=== PATIENT | female | born 1980 | race Caucasian/White ===

== ENCOUNTER → 2021-01-30 | Outpatient (CLI) | payer BC, OTHER ==
--- NOTE | 2021-01-30 10:29 | XR ---
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 Straightening of the norm al cervical lordosis is likely due to positioning or muscle spasm. The pre-vertebral soft tissue appe ars within normal limits. The C1-C2 articulation is within normal limits on the open mouth view. Th e dens is intact. The oblique images are within normal limits. IMPRESSION: 1. Straightening of the normal cervical lordosis is likely due to positioning or muscle spasm. No acu te fracture is seen.
--- NOTE | 2021-01-30 10:30 | XR ---
EXAMINATION TYPE: XR chest 2V DATE OF EXAM: 01/30/2021 COMPARISON: NONE HISTORY: Post Covid, shortness of breath TECHNIQUE: Frontal and lateral views of the chest are obtained. FINDINGS: Heart size is within normal limits. Trachea is midline. No focal consolidation, pneumothor ax or left pleural effusion. Minimal blunting of the right costophrenic angle may represent tiny righ t pleural effusion or scarring. Osseous structures are unremarkable. IMPRESSION: 1. Minimal blunting of the right costophrenic angle may represent tiny pleural effusion or scarring. No focal consolidation.
--- NOTE | 2021-01-30 13:28 | XR ---
EXAMINATION TYPE: XR lumbosacral spine min 4V DATE OF EXAM: 01/30/2021 CLINICAL HISTORY: Post- Covid lumbar pain TECHNIQUE: Frontal, lateral, and oblique images of the lumbar spine are obtained. COMPARISON: None FINDINGS: 4 lumbar type vertebral bodies with partial sacralization of L5. Facets are in alignment on the oblique views. Sacroiliac joints are intact. There is maintenance of the normal lumbar lordosis. No spondylolisthesis. Anterior osteophyte at the inferior L1 and L5 vertebral body. Narrowing of the L5-S1 intervertebral disc space is moderate. Paravertebral soft tissues are unremarkable. There is a rounded partially calcified density in the right upper quadrant measuring 2.4 cm x 2.2 cm. This may represent a partially calcified gallstone. An ultrasound may be helpful. IMPRESSION: 1. Mild degenerative changes of lumbar spine most prominent at L5-S1. 2. Rounded density within the right upper quadrant may represent a large gallstone. Ultrasound evalua tion would BE helpful if clinically indicated.
== END | disposition home or self-care (01) ==
LOC: RADXRMAIN 09:17
PROVIDERS: ATTEND Family Medicine
DX: B94.8 Sequelae of other specified infectious and parasitic diseases (principal); M54.2 Cervicalgia; M54.5 Low back pain; R06.02 Shortness of breath
CPT/HCPCS: 71046; 72050; 72110

== ENCOUNTER → 2021-03-30 | Outpatient (CLI) | payer BC, OTHER ==
--- NOTE | 2021-03-30 12:35 | US ---
EXAMINATION TYPE: US abdomen complete DATE OF EXAM: 03/30/2021 COMPARISON: X ray 2020 CLINICAL HISTORY: R10.11 ABD PAIN. Intermittent abdomen pain and nausea x couple years, RUQ density s een on recent x-ray EXAM MEASUREMENTS: Liver Length: 14.7 cm Gallbladder Wall: 0.2 cm CBD: 0.4 cm Spleen: 8.5 cm Right Kidney: 10.6 x 4.0 x 4.6 cm Left Kidney: 10.2 x 5.4 x 4.4 cm Pancreas: visualized portions wnl, limited by overlying midline bowel gas Liver: wnl Gallbladder: multiple small mobile stones seen with large mobile stone measuring 1.7cm Evidence for sonographic Siddiqi's sign: no CBD: wnl Spleen: wnl Right Kidney: wnl Left Kidney: wnl Upper IVC: wnl Abd Aorta: wnl The liver is homogenous. The intrahepatic portion of the IVC and proximal abdominal aorta are within normal limits. Common bile duct is unremarkable. The visualized portions of the pancreas are homog enous. The spleen is unremarkable. Kidneys are symmetric and free of hydronephrosis. No renal lesi ons are seen. IMPRESSION: cholelithiasis
== END | disposition home or self-care (01) ==
LOC: RADUSWWP 09:26
PROVIDERS: ATTEND Family Medicine
DX: K80.20 Calculus of gallbladder without cholecystitis without obstruction (principal)
CPT/HCPCS: 76700

== ENCOUNTER 2021-08-17 08:32 | Day surgery (SDC) | payer BC, OTHER ==
[2021-08-10 14:28] VITALS: BMI 36.6
[~2021-08-17 08:32] MED LIST: ACETAMINOPHEN TAB 500 MG TAB PO PRN; DEXAMETHASONE SOD PHOSPHATE 4 MG/ML 1 ML VIAL IV ONE; HEPARIN SODIUM,PORCINE/PF 5,000 UNIT/0.5 ML SYRINGE SQ PRN; LIDOCAINE 1% (10MG/ML) FOR IV START INTRADERMA PRN; ONDANSETRON 4 MG/2 ML VIAL IVP ONE
--- NOTE | 2021-08-17 08:48 | P.GSHP ---
History of Present Illness H&P Date: 08/17/21 Chief Complaint: Chronic cholecystitis 41-year-old female here today for cholecystectomy. Patient found to have multiple gallstones largest measuring 1.7 cm. Has frequent episodes of right upper quadrant pain with radiation of the back. Some nausea. No change in the color of her skin urine or stool. Past Medical History Additional Past Medical History / Comment(s): small gallbladder attack. ON 3RD DAY OF ANTIBIOTICS FOR SINUS INFECTION History of Any Multi-Drug Resistant Organisms: None Reported Additional Past Surgical History / Comment(s): cyst removal on LT breast Past Anesthesia/Blood Transfusion Reactions: No Reported Reaction Smoking Status: Former smoker - Past Family History Father Family Medical History: Cancer Medications and Allergies Home Medications Medication Instructions Recorded Confirmed Type Amoxic-Pot Clav 875-125Mg 1 tab PO BID 08/10/21 08/10/21 History [Augmentin 875-125] Cetirizine HCl [Children's Zyrtec 10 mg PO DAILY 08/10/21 08/10/21 History Allergy] Fluticasone Nasal C[place] [Flonase 2 spray EA NOSTRIL BID 08/10/21 08/10/21 History Nasal Custer] Allergies Allergy/AdvReac Type Severity Reaction Status Date / Time latex Allergy Itching Verified 08/10/21 14:19 Surgical - Exam Physical exam: General: Well-developed, well-nourished HEENT: Normocephalic, sclerae nonicteric Abdomen: Nontender, nondistended Extremities: No edema Neuro: Alert and oriented Assessment and Plan (1) Chronic cholecystitis Narrative/Plan: Will proceed with laparoscopic cholecystectomy, possible open at this time. Risks of bleeding, infection, bile leak, bile duct injury, retained common bile duct stone, trocar injury, conversion to an open procedure, hernia, anesthesia related complications were reviewed. The patient understands and wishes to proceed. Current Visit: Yes Status: Acute Code(s): K81.1 - CHRONIC CHOLECYSTITIS SNOMED Code(s): 31383939
[2021-08-17] MEDS: LACTATED RINGERS 1,000 ML IV SCH ×2 (09:16→09:59)
[2021-08-17] MEDS: MIDAZOLAM 2 MG/2 ML VIAL IV PRN ×2 (09:36→09:45)
[2021-08-17] MEDS ORDERED: ROCURONIUM 10 MG/ML (5 ML VIAL) IV ONE (09:56)
[2021-08-17] MEDS ORDERED: LIDOCAINE 1% INJ 10MG/ML (20 ML MDV) ONE (09:56)
[2021-08-17] MEDS ORDERED: NEOSTIGMINE 1 MG/ML 10 ML VIAL ONE (09:56)
[2021-08-17] MEDS ORDERED: GLYCOPYRROLATE 0.2 MG/ML 2 ML VIAL ONE (09:56)
[2021-08-17] MEDS ORDERED: SUCCINYLCHOLINE CHLORIDE 100 MG/5 ML SYR IV ONE (09:56)
[2021-08-17] MEDS ORDERED: PROPOFOL 10 MG/ML 20 ML VIAL IV ONE (09:56)
[2021-08-17] MEDS ORDERED: MIDAZOLAM 2 MG/2 ML VIAL ONE (09:56)
[2021-08-17] MEDS ORDERED: fentaNYL (PF) 50 MCG/ML 2 ML AMP ONE (09:56)
[2021-08-17] MEDS ORDERED: BUPIVACAINE (PF) 0.25% 30 ML VIAL SQ ONE ×2 (10:00→10:59)
[2021-08-17 11:18] VITALS: RESP 16; TEMP 97
[2021-08-17] MEDS: HYDROmorphone 0.5 MG/0.5 ML SYRINGE IVP PRN ×2 (11:20→11:38)
--- NOTE | 2021-08-17 11:21 | P.OP ---
Date of Procedure: 08/17/21 Procedure(s) Performed: PREOPERATIVE DIAGNOSIS: Chronic cholecystitis POSTOPERATIVE DIAGNOSIS: Same PROCEDURE: Laparoscopic cholecystectomy SURGEON: Nory EBL: Minimal see anesthesia record ANESTHESIA: Gen. COMPLICATIONS: None OPERATIVE PROCEDURE: The patient was brought and placed on the operating room table in the supine position. The patient was placed under general anesthesia at that time. The abdomen was prepped and draped in the usual sterile fashion. A small vertical infraumbilical incision was made. The fascia was grasped with the Pedro forceps. The fascia was retracted anteriorly. The Veress needle was advanced into the peritoneal cavity. The saline drop test was normal. Insufflation took place up to 15 mmHg. A 5 mm optical trocar was advanced and the peritoneal cavity. 2 additional 5 mm trochars were placed in the right upper quadrant under direct visualization. A 12 mm trocar was advanced into the epigastric incision site. The gallbladder was retracted superiorly and laterally. The peritoneum overlying the infundibulum was bluntly dissected. The patient had some chronic inflammatory changes of the entire gallbladder. The patient's infundibulum in this case was narrow for a long segment before even reached the cystic duct. We followed the cystic duct all the way down to its junction with the common bile duct. As I was palpating the cystic duct I could tell there were a few small stones in the cystic duct distally. These were milked proximally. Once I milked them proximally the cystic duct was clipped and divided. I could see there were stones at the opening of the cystic duct and these were suctioned out. The adjacent cystic artery was clipped as w ell. A additional small vessel was seen measuring only 1-2 mm in size and clipped. The gallbladder was then removed from the liver bed using electrocautery. The gallbladder was then removed from the epigastric trocar site with an Endo Catch bag. The gallbladder fossa was irrigated with saline. There was no evidence of any bleeding or biliary drainage seen. The fascia at the 12 millimeter site was closed using a Mohan-Didier 0 Vicryl stitch. The trochars were then removed. The skin at all 4 sites was closed using a 4-0 Monocryl stitch. Skin glue was utilized on the incision sites. At the end of this procedure the sponge and needle counts were correct. Pictures of the procedure were taken and shown to the family postoperatively. DISPOSITION: Stable to the recovery room
[2021-08-17] MEDS ORDERED: ACETAMINOPHEN TAB 325 MG TAB PO SCH (12:00)
[2021-08-17 14:08] VITALS: BP 135/78; PULSE 48
[2021-08-17] MEDS ORDERED: IBUPROFEN 600 MG TAB PO SCH (15:00)
== END 2021-08-17 14:48 | disposition home or self-care (01) ==
LOC: OR 08:32
PROVIDERS: ATTEND Surgery
DX: K81.1 Chronic cholecystitis (principal); Z87.891 Personal history of nicotine dependence; Z80.9 Family history of malignant neoplasm, unspecified
CPT/HCPCS: 47562; 81025; 88304; J2250; J1100; J2710; J0690; J2405; J2001; J3010; J0330; J2704; J1170; J1790